=== PATIENT | male | born 1955 | race Caucasian/White ===

== ENCOUNTER → 2016-12-10 | Day surgery (SDC) | payer MEDICAID ==
[2015-08-07 13:46] VITALS: BP 134/91
[~2016-12-10] MED LIST: ACETAMINOPHEN-H1 TA1 PO; BACTRIM DS TAB1 EACH PO; CEPHALEXIN500 M1 PO; ULTRAM 50MG TAB50 MG PO; ZESTRIL 20MG TA20 MG PO
== END ==
LOC: MSO 09:04
DX: Z12.11 Encounter for screening for malignant neoplasm of colon (principal); K63.5 Polyp of colon; I10 Essential (primary) hypertension; F17.200 Nicotine dependence, unspecified, uncomplicated
CPT/HCPCS: 00810; J3010; J7120

== ENCOUNTER 2017-05-12 18:56 | Emergency (ER) | payer MEDICAID ==
[~2017-05-12] VITALS: Ht 177.8 cm; Wt 72.7 kg
[2017-05-12 20:08] LABS: HEMOGLOBIN 13.9 g/dL (13.5-18.0); MEAN CELL VOLUME 106 fl (78-100); MEAN CORPUSCULAR HGB CONC 36 g/dL (33-37); MEAN PLATELET VOLUME 10.3 fl (7.4-10.4); RED BLOOD COUNT 3.68 M/mm3 (4.20-5.60); RED CELL DISTRIBUTION WIDTH 13.6 % (11.5-14.5); WHITE BLOOD COUNT 3.1 K/mm3 (4.8-10.8)
[2017-05-12 20:14] LABS: MEAN CORPUSCULAR HEMOGLOBIN 38 pg (27-31)
[2017-05-12 20:20] LABS: ALBUMIN 3.6 g/dL (3.5-5.0); ALT/SGPT 56 U/L (21-72); AST-SGOT 90 U/L (17-59); BUN/CREATININE RATIO 17.1 (6.0-26.0); CALCIUM 8.9 mg/dL (8.4-10.2); CARBON DIOXIDE 28 mmol/L (22-30); GLUCOSE 105 mg/dL (75-110); LIPASE 188 U/L (23-300); POTASSIUM 4.2 mmol/L (3.6-5.0); SODIUM 135 mmol/L (137-145); TOTAL BILIRUBIN 3.1 mg/dL (0.2-1.3); TOTAL PROTEIN 7.1 g/dL (6.3-8.2)
[2017-05-12 20:21] LABS: ALCOHOL IN-HOUSE < 10 mg/dL; PLATELET COUNT 42 K/mm3 (130-400); PROTHROMBIN TIME 12.7 SECONDS (9.0-12.0)
[2017-05-12 20:41] LABS: NEUTROPHILS 52 % (42-75)
[2017-05-12 20:42] LABS: LYMPHOCYTE 34 % (20-51); MONOCYTE 12 % (3-10)
[2017-05-12 20:52] LABS: URINE COLOR AMBER
[2017-05-12 20:53] LABS: PH-URINE 5.5 (5.0 - 8.0); URINE APPEARANCE HAZY; URINE BILIRUBIN 2+ (NEGATIVE); URINE BLOOD TRACE (NEGATIVE); URINE GLUCOSE NEGATIVE (NEGATIVE); URINE KETONE NEGATIVE (NEGATIVE); URINE LEUKOCYTE ESTERASE NEGATIVE (NEGATIVE); URINE NITRATE NEGATIVE (NEGATIVE); URINE PROTEIN(semi-quant) NEGATIVE (NEGATIVE); URINE UROBILINOGEN 12 mg/dL (NORMAL)
[2017-05-12 20:54] LABS: URINE MUCUS PRESENT (NOT PRESENT)
[2017-05-12 23:40] VITALS: BP 116/84
== END 2017-05-12 23:40 | disposition short-term general hospital (02) ==
LOC: ED 18:56
PROVIDERS: Physician Assistant
DX: K92.2 Gastrointestinal hemorrhage, unspecified (principal); I10 Essential (primary) hypertension; Z87.11 Personal history of peptic ulcer disease; F10.20 Alcohol dependence, uncomplicated; Z88.5 Allergy status to narcotic agent; F17.210 Nicotine dependence, cigarettes, uncomplicated; K74.60 Unspecified cirrhosis of liver; D69.6 Thrombocytopenia, unspecified; Y90.0 Blood alcohol level of less than 20 mg/100 ml
CPT/HCPCS: C9113; J7050; Q9967

== ENCOUNTER → 2020-04-24 | Outpatient (CLI) | payer MEDICAID | LOC: LAB 09:50 | DX: Z01.812 Encounter for preprocedural laboratory examination (principal); Z20.822 Contact with and (suspected) exposure to COVID-19 ==

== ENCOUNTER → 2021-03-20 | Outpatient (CLI) | payer MEDICAID | LOC: RAD 09:00 | DX: K70.31 Alcoholic cirrhosis of liver with ascites (principal); D69.6 Thrombocytopenia, unspecified; F10.10 Alcohol abuse, uncomplicated ==

== ENCOUNTER → 2021-03-22 | Outpatient (CLI) | payer MEDICAID | LOC: RAD 11:55 | DX: K70.31 Alcoholic cirrhosis of liver with ascites (principal) | CPT/HCPCS: 19804; C1729 ==

== ENCOUNTER → 2021-05-10 | Outpatient (CLI) | payer MEDICARE, MEDICAID | LOC: RAD 12:15 | DX: K70.31 Alcoholic cirrhosis of liver with ascites (principal) | CPT/HCPCS: 19804; C1729 ==

== ENCOUNTER → 2021-08-16 | Outpatient (CLI) | payer OTHER, MEDICAID | LOC: RAD 12:55 | DX: K70.31 Alcoholic cirrhosis of liver with ascites (principal) | CPT/HCPCS: 19804; C1729 ==